=== PATIENT | male | born 1960 | race Two or more races ===

== ENCOUNTER → 2020-12-02 | Outpatient (CLI) | payer OTHER | LOC: KOH-I 12-01 11:00 | DX: N17.9 Acute kidney failure, unspecified (principal) | CPT/HCPCS: 76775 ==

== ENCOUNTER → 2021-01-06 | Outpatient (CLI) | payer OTHER | LOC: CT 12-30 11:30 | DX: M17.10 Unilateral primary osteoarthritis, unspecified knee (principal); N40.0 Benign prostatic hyperplasia without lower urinary tract symptoms; R79.89 Other specified abnormal findings of blood chemistry; M51.9 Unspecified thoracic, thoracolumbar and lumbosacral intervertebral disc disorder; E78.5 Hyperlipidemia, unspecified; L60.0 Ingrowing nail; R91.8 Other nonspecific abnormal finding of lung field | CPT/HCPCS: 71270; 82565 ==

== ENCOUNTER → 2021-10-13 | Outpatient (CLI) | payer OTHER | LOC: CT 11:30 | DX: M51.9 Unspecified thoracic, thoracolumbar and lumbosacral intervertebral disc disorder (principal); J98.4 Other disorders of lung; E27.8 Other specified disorders of adrenal gland; E78.5 Hyperlipidemia, unspecified; N40.0 Benign prostatic hyperplasia without lower urinary tract symptoms; M17.9 Osteoarthritis of knee, unspecified; R79.89 Other specified abnormal findings of blood chemistry | CPT/HCPCS: 71250; 74150 ==